=== PATIENT | male | born 1985 | race Caucasian/White ===

== ENCOUNTER 2022-08-08 01:10 | Day surgery (SDC) | payer BC, SELFPAY ==
[2022-08-07 09:18] VITALS: BMI 33.9
--- NOTE | 2022-08-07 09:21 | PC.NURSE ---
Report to the Outpatient Waiting Room, entrance under the green pavilion located off [facility], at time 0830 on date 08/08/22. Planned Procedure Time: 1030. Time changes happen often and if your time is changed the preop area will call you the afternoon before. - You and your visitor will be asked to self-screen and do not enter if you have any COVID symptoms. - A mask is optional within the hospital at this time. Patients may have clear liquids (water, carbonated beverages, clear teas, apple juice) until 3 hours prior to surgery with a maximum of 20 ounces. - No food from midnight until time of surgery Take the following medications with a SIP of water the morning of surgery: NONE DO NOT STOP ANY OF YOUR OTHER PRESCRIPTION MEDICATIONS PRIOR TO SURGERY EXCEPT THE FOLLOWING Medications to discontinue per physician: N/A Date to take last dose: N/A Please no make-up, nail albanian, hairspray, perfume, deodorant, or body powder the day of surgery. No jewelry (including any body piercings) or valuables the day of surgery, leave them at home. Please take a shower or bath the night before, or the morning of, surgery with an antibacterial soap. Wear comfortable, loose fitting clothing. - Jewelry must be removed prior to entering the operating room. Rings and piercings that are not removed may be cut off. - The hospital will not accept responsibility for valuables. - Please leave all valuables, including medications, at home the day of surgery. If you are going home after surgery, a licensed entry level truck driver must drive you home. - NO public transportation without another adult if you receive anesthesia. - We recommend that an adult stay with you for 24 hours following discharge. - We also recommend that you do not drive, make important decision, drink alcoholic beverages, or take any drugs that were not prescribed by your health care provider for at least 24 hours after your discharge time. Follow any additional instructions given to you from your surgeon. If you or anyone in your household have experienced Covid symptoms in the past week, please notify your surgeon or the nurse liaison at the phone number below for possible testing. Telephone instructions given to SOLANGE VACA and asked if any additional questions and then verbalized understanding. Patient advised to call surgeon office or pre surgery nurse liaison [phone] if any additional questions.
[2022-08-08] VITALS (9 sets, daily range): BP systolic 117–143; BP diastolic 66–87; PULSE 70–78; RESP 12–20; TEMP 36.2–36.8; O2SAT 97–100
--- NOTE | 2022-08-08 08:54 | WPDHPUPDATE1 ---
History and Physical Update Update Date/Time: 08/08/22 08:54 History and Physical has been reviewed, including an updated exam of the patient. There are NO changes in the patient's condition. Risks, benefits, and alternatives have been discussed and questions answered. Patient agrees to proceed with procedure.
[2022-08-08] MEDS: LACTATED RINGERS 1,000 ML 30 ML IV CONT ×2 (09:32→12:33)
--- NOTE | 2022-08-08 10:05 | P.PNAN_ITS ---
Anes - Initial Pre Proc Eval Procedure: Operation Date: 08/08/22 10:30 Proposed Procedures p Excision of Scrotal Sebaceous Cysts - Gerson Bautista MD Date/Time: 08/08/22 10:05 Surgeon: Gerson Bautista MD Pre Op Diagnosis: Scrotal Lesions Patient Data Age: 37 Gender: M Height: 1.83 m Weight: 113.3 kg Last Vital Signs Temp 36.8 C 08/08/22 09:03 Pulse 70 08/08/22 09:03 Resp 16 08/08/22 09:03 BP 124/83 08/08/22 09:03 Pulse Ox 98 08/08/22 09:03 O2 Del Method Room Air 08/08/22 09:03 Allergies Allergy/AdvReac Type Severity Reaction Status Date / Time No Known Allergies Allergy Unknown Verified 08/08/22 09:08 Home Medications Medication Instructions Recorded Confirmed Type dextroamphetamine-amphetamine 15 15 mg PO BID 08/07/22 08/07/22 History mg tablet testosterone enanthate 100 mg/0.5 100 mg subcut 2XW 08/07/22 08/07/22 History mL subcutaneous auto-injector Patient hx anesthesia problems: none Family hx anesthesia problems: none Results Review: All pre-operative results and documents have been reviewed as part of the pre- operative evaluation. [facility] Social History Social History Smoking status: Never smoker Alcohol intake: current Drinks per week: 15 Substance use: never Substance use type: does not use Living arrangements: alone Spiritual care concerns: No Anes - Eval Final PreProcedure Day of Procedure 08/08/22 10:05 Patient weight: obese Heart: regular rate and rhythm Lungs: clear to auscultation Airway: Mallampati scale class II Neurological: alert and oriented Last oral intake: >/= 8 hours ASA classification: II Emergent: no Anesthetic plan: proceed Anesthesia type and monitoring: general LMA and standard monitoring Results Review: All pre-operative results and documents have been reviewed as part of the pre- operative evaluation. Informed Consent: The patient's anesthetic plan and its attendant risks and benefits were discussed with the patient/family/POA. Questions were solicited and answers provided to the satisfaction of the patient/family/POA.
[2022-08-08] MEDS: ceFAZolin 2 GM/D5W 50 ML 2 GM/50 ML BAG IVPB (11:40)
[2022-08-08] MEDS: BUPivacaine HCL 0.5% PF 30 ML VIAL INFILTRATE (11:55)
--- NOTE | 2022-08-08 12:30 | W.PM.PROC2 ---
Procedure Note - Detailed Date of Procedure 08/08/22 Pre-op Diagnosis Scrotal Lesions Post-op Diagnosis Same Procedure Performed Excision of scrotal lesions Surgeon Gerson Bautista MD Anesthesia General Description of Procedure Patient is taken the operative suite correctly identified. Once anesthesia was obtained he was prepped draped usual sterile fashion. Patient had extensive amount of what appeared to be sebaceous inclusion cysts. We actually ended up taking them out by making elliptical incisions and some were taken out in pulp. Some were excised separately. We then closed to long incisions using 3-0 chromic in a running fashion. Skin was anesthetized with 0.5% Marcaine. Neosporin ointment was placed on the incisions. He was taken recovery stable condition. Patient will follow-up in 2-3 weeks time. This completes dictation. Please send a copy to my office Estimated Blood Loss 0 Drains No Packing No Pathology Yes Complications No immediate complications Condition Stable Disposition PACU
--- NOTE | 2022-08-08 13:31 | SUR.PHASEI ---
RN called Dr. Bautista' office to inquire about pain medicine.
== END 2022-08-08 14:36 | disposition home or self-care (01) ==
PROVIDERS: Visit Provider Urology
PROC: (CPT 54060; principal; 2022-08-08 10:30)
DX: N50.89 Other specified disorders of the male genital organs (principal); E66.9 Obesity, unspecified; Z68.33 Body mass index [BMI] 33.0-33.9, adult
CPT/HCPCS: 11426; 88305; A9270; J0690; J1100; J2250; J2405; J2704; J3010; J7120